=== PATIENT | male | born 1935 | race Hispanic/Latino ===

== ENCOUNTER 2018-01-10 10:09 | Emergency (ER) | payer MEDICARE, OTHER ==
[2018-01-10 10:18] VITALS: BMI 23.6
[2018-01-10 10:25] VITALS: TEMP 97.9
--- NOTE | 2018-01-10 11:01 | ED PDOC ---
Arrival/HPI - General Chief Complaint: Abnormal Labs Time Seen by Provider: 01/10/18 10:46 Historian: Patient - History of Present Illness Narrative History of Present Illness (Text): 01/10/18 10:56 Pt is an 82 yr old male with a past medical history of hypertension, and type 2 diabetes, who presents today after having routine labs done at [facility] yesterday and stated that the potassium was elevated and should be evaluated in the ED. Pt is completely asymptomatic and denies chest pain, shortness of breath , back pain or any other complaints. Time/Duration: 24 hours Symptom Onset: Sudden Symptom Course: Unchanged Quality: Unable to Describe Context: Other (Found at [facility] yesterday) Past Medical History - Provider Review Nursing Documentation Reviewed: Yes - Travel History Have you recently traveled outside [place] w/in the past 3 mons?: No - Infectious Disease Hx of Infectious Diseases: None - Cardiac Hx Hypertension: Yes - Endocrine/Metabolic Hx Diabetes Mellitus Type 2: Yes - Psychiatric Hx Substance Use: No - Surgical History Hx Appendectomy: Yes - Anesthesia Hx Anesthesia Reactions: No Hx Malignant Hyperthermia: No Family/Social History - Physician Review Nursing Documentation Reviewed: Yes Family/Social History: Unknown Family HX Smoking Status: Former Smoker Hx Alcohol Use: No Hx Substance Use: No Allergies/Home Meds Allergies/Adverse Reactions: Allergies No Known Allergies Allergy (Verified 01/10/18 10:18) Home Medications: Home Meds Medication Instructions Recorded Confirmed No Known Home Med 01/10/18 01/10/18 Review of Systems - Review of Systems Constitutional: Normal Eyes: Normal ENT: Normal Respiratory: Normal Cardiovascular: Normal Gastrointestinal: Normal Genitourinary Male: Normal Musculoskeletal: Normal Skin: Normal Neurological: Normal Endocrine: Normal Hemo/Lymphatic: Normal Psychiatric: Normal Physical Exam Vital Signs Reviewed: Yes Vital Signs Temp Pulse Resp BP Pulse Ox 01/10/18 12:21 75 18 112/68 97 01/10/18 10:24 97.9 F 78 19 110/53 L 95 Temperature: Afebrile Blood Pressure: Normal Pulse: Regular Respiratory Rate: Normal Appearance: Positive for: Well-Appearing, Non-Toxic, Comfortable Pain Distress: None Mental Status: Positive for: Alert and Oriented X 3 - Systems Exam Head: Present: Atraumatic, Normocephalic Pupils: Present: PERRL Extroacular Muscles: Present: EOMI Conjunctiva: Present: Normal Mouth: Present: Moist Mucous Membranes Neck: Present: Normal Range of Motion Respiratory/Chest: Present: Clear to Auscultation, Good Air Exchange. No: Respiratory Distress, Accessory Muscle Use Cardiovascular: Present: Regular Rate and Rhythm, Normal S1, S2. No: Murmurs Abdomen: No: Tenderness, Distention, Peritoneal Signs Back: Present: Normal Inspection Upper Extremity: Present: Normal Inspection. No: Cyanosis, Edema Lower Extremity: Present: Normal Inspection. No: Edema Neurological: Present: GCS=15, CN II-XII Intact, Speech Normal Skin: Present: Warm, Dry, Normal Color. No: Rashes Psychiatric: Present: Alert, Oriented x 3, Normal Insight, Normal Concentration Medical Decision Making ED Course and Treatment: 01/10/18 11:00 Impression Pt is an 82 yr old male who is asymptomatic with an elevated potassium finding at [facility] yesterday Pt complains of right inguinal pressure, especially on coughing or sneezing; otherwise PE benign Plan Labs, EKG Assess and dispo Progress note Potassium 4.9 and ECG with NSR, elevated whites Pt remains asymptomatic Case discussed with Dr Dimas who evaluated pt bedside; exam unremarkable and no underlying pathology appreciated Advised Pt to follow up with PMD to discuss lab results and monitor over time VSS on d/c - Lab Interpretations Lab Results: 01/10/18 11:36 01/10/18 11:10 Lab Results 01/10/18 11:36: WBC 17.5 H, RBC 4.39, Hgb 13.6 L, Hct 40.5 L, MCV 92.3, MCH 31.0 , MCHC 33.6, RDW 13.5, Plt Count 308, MPV 10.6, Gran % 42.4 L, Lymph % (Auto) 47.9 H, [place] % (Auto) 6.2 H, Eos % (Auto) 3.2, Baso % (Auto) 0.3, Gran # 7.40 H , Lymph # (Auto) 8.4 H, [place] # (Auto) 1.1 H, Eos # (Auto) 0.6, Baso # (Auto) 0.05 01/10/18 11:10: Sodium 144, Potassium 4.9, Chloride 104, Carbon Dioxide 28, Anion Gap 16, BUN 23 H, Creatinine 1.2, Est GFR ( Amer) > 60, Est GFR ( Non-Af Amer) 58, Random Glucose 95, Calcium 9.7, Total Bilirubin 0.5, AST 28, ALT 30, Alkaline Phosphatase 73, Total Protein 7.6, Albumin 4.5, Globulin 3.1, Albumin/Globulin Ratio 1.5 01/10/18 11:05: Urine Color Yellow, Urine Appearance Clear, Urine pH 6.0, Ur Specific [place] 1.025, Urine Protein Trace H, Urine Glucose (UA) Negative, Urine Ketones Negative, Urine Blood Negative, Urine Nitrate Negative, Urine Bilirubin Negative, Urine Urobilinogen 1.0 H, Ur Leukocyte Esterase Negative, Urine RBC 0 - 2, Urine WBC 0 - 2, Ur Epithelial Cells None, Urine Bacteria Few - EKG Interpretation Interpreted by ED Physician: Yes (NSR with mildly peaked T waves in V2-V6, Rate 72) Disposition/Present on Arrival - Present on Arrival Any Indicators Present on Arrival: No History of DVT/PE: No History of Uncontrolled Diabetes: No Urinary Catheter: No History of Decub. Ulcer: No History Surgical Site Infection Following: None - Disposition Have Diagnosis and Disposition been Completed?: Yes Diagnosis: Blood pressure check, Leukocytosis Disposition: HOME/ ROUTINE Disposition Time: 12:13 Patient Plan: Discharge Condition: GOOD Discharge Instructions (ExitCare): Low Potassium Diet Additional Instructions: Crow thank you for letting us take care of you today. Your provider was CARLOS Hu. You were evaluated for possible electrolyte abnormality and blood pressure. The emergency medical care you received today was directed at your acute symptoms. If you were prescribed any medication, please fill it and take as directed. It may take several days for your symptoms to resolve. Return to the Emergency Department if your symptoms worsen, do not improve, or if you have any other problems. Please let your doctor know that your potassium level (4.9) today was within a normal range but should be monitored over time Please contact your doctor or call one of the physicians/clinics you have been referred to that are listed on the Patient Visit Information form that is included in your discharge packet. Bring any paperwork you were given at discharge with you along with any medications you are taking to your follow up visit. Our treatment cannot replace ongoing medical care by a primary care provider (PCP) outside of the emergency department. Thank you for allowing the [facility] team to be part of your care today. Referrals: Nathan Hobbs [Primary Care Provider] - Follow up with primary Forms: [employer] ([place])
[2018-01-10 11:29] LABS: URINE BILIRUBIN NEGATIVE (NEGATIVE); URINE BLOOD NEGATIVE (NEGATIVE); URINE GLUCOSE (UA) NEGATIVE (NEGATIVE); URINE LEUKOCYTE ESTERASE NEGATIVE Leu/uL (NEGATIVE); URINE PROTEIN TRACE mg/dL (<30 mg/dL)
[2018-01-10 11:30] LABS: URINE APPEARANCE CLEAR (CLEAR); URINE COLOR YELLOW (YELLOW)
[2018-01-10 11:43] LABS: URINE BACTERIA FEW (NEG); URINE RBC 0 - 2 /hpf (0-2); URINE WBC 0 - 2 /hpf (0-6)
[2018-01-10 11:53] LABS: ALB/GLOB RATIO 1.5 (1.1-1.8); ALBUMIN 4.5 g/dL (3.0-4.8); ALT/SGPT 30 U/L (7-56); AST/SGOT 28 U/L (17-59); BLOOD UREA NITROGEN 23 mg/dL (7-21); CALCIUM 9.7 mg/dL (8.4-10.5); GFR AFRICAN-AMERICAN > 60; GFR NON-AFRICAN AMERICAN 58
[2018-01-10 12:12] LABS: BASO # 0.05 K/mm3 (0.0-2.0); BASO % 0.3 % (0.0-3.0); EOS # 0.6 (0.0-0.7); EOS % 3.2 % (1.5-5.0); GRAN # 7.4 (1.4-6.5); GRAN % 42.4 % (50.0-68.0); HEMOGLOBIN 13.6 g/dL (14.0-18.0); LYMPH # 8.4 (1.2-3.4); LYMPH % 47.9 % (22.0-35.0); MEAN CELL VOLUME 92.3 fl (80.0-105.0); MEAN CORPUSCULAR HGB CONC 33.6 g/dl (31.0-37.0); MEAN PLATELET VOLUME 10.6 fl (7.0-11.0); MONO # 1.1 (0.1-0.6); MONO % 6.2 % (1.0-6.0); RBC 4.39 10^6/uL (3.5-6.1); RED CELL DISTRIBUTION WIDTH 13.5 % (11.5-14.5); WHITE BLOOD COUNT 17.5 10^3/ul (4.5-11.0)
[2018-01-10 12:31] VITALS: BP 112/68; PULSE 75; RESP 18; O2SAT 97
--- NOTE | 2018-01-10 19:11 | CARD ---
APPROVED REPORT EKG Measurement Heart [id number] <Conclusion> Normal sinus rhythm Normal ECG
== END 2018-01-10 12:30 | disposition home or self-care (01) ==
LOC: ED 10:09
DX: D72.829 Elevated white blood cell count, unspecified (principal); I10 Essential (primary) hypertension; E11.9 Type 2 diabetes mellitus without complications; Z87.891 Personal history of nicotine dependence

== ENCOUNTER 2018-06-01 14:28 | Observation (INO) | payer MEDICARE, OTHER ==
[2018-06-01 14:29] VITALS: BMI 23.6
--- NOTE | 2018-06-01 15:00 | ED PDOC ---
Arrival/HPI - General Chief Complaint: Abdominal Pain Time Seen by Provider: 06/01/18 14:44 Historian: Patient - History of Present Illness Narrative History of Present Illness (Text): 06/01/18 14:59 A 82 year old male, whose past medical history includes hypertension and type 2 diabetes, presents to the emergency department complaining of a hernia since a few days ago. Patient reports he has had the hernia for 3 months but pain has become worse in the past few days. Patient notes pain is non-radiating and stays in the groin area. Patient denies any fever, chills, shortness of breath , chest pain, diarrhea, nausea, vomiting, urinary symptoms, back pain, neck pain, headache, dizziness, or any other complaints. PMD: Al Blount General Surgeon: Dr. Booker Time/Duration: Other (a few days ago) Symptom Onset: Gradual Activities at Onset: Light Context: Home Past Medical History - Provider Review Nursing Documentation Reviewed: Yes - Infectious Disease Hx of Infectious Diseases: None - Cardiac Hx Hypertension: Yes - Endocrine/Metabolic Hx Diabetes Mellitus Type 2: Yes - Psychiatric Hx Substance Use: No - Surgical History Hx Appendectomy: Yes - Anesthesia Hx Anesthesia Reactions: No Hx Malignant Hyperthermia: No Family/Social History - Physician Review Nursing Documentation Reviewed: Yes Family/Social History: Unknown Family HX Smoking Status: Former Smoker Hx Alcohol Use: No Hx Substance Use: No Allergies/Home Meds Allergies/Adverse Reactions: Allergies No Known Allergies Allergy (Verified 06/01/18 14:51) Home Medications: Home Meds Medication Instructions Recorded Confirmed No Known Home Med 01/10/18 01/10/18 Review of Systems - Physician Review All systems were reviewed & negative as marked: Yes - Review of Systems Constitutional: absent: Fevers, Night Sweats Respiratory: absent: SOB Cardiovascular: absent: Chest Pain Gastrointestinal: absent: Diarrhea, Nausea, Vomiting Genitourinary Male: Other (+hernia pain in the groin area). absent: Urinary Output Changes Musculoskeletal: absent: Back Pain, Neck Pain Neurological: absent: Headache, Dizziness Physical Exam Vital Signs Reviewed: Yes Vital Signs Temp Pulse Resp BP Pulse Ox 06/01/18 15:55 98.0 F 79 18 132/48 L 97 06/01/18 14:53 98.0 F 65 18 154/70 H 99 Temperature: Afebrile Blood Pressure: Hypertensive Pulse: Regular Respiratory Rate: Normal Appearance: Positive for: Well-Appearing, Non-Toxic, Comfortable Pain Distress: None Mental Status: Positive for: Alert and Oriented X 3 - Systems Exam Head: Present: Atraumatic, Normocephalic Pupils: Present: PERRL Extroacular Muscles: Present: EOMI Conjunctiva: Present: Normal Mouth: Present: Moist Mucous Membranes Neck: Present: Normal Range of Motion Respiratory/Chest: Present: Clear to Auscultation, Good Air Exchange. No: Respiratory Distress, Accessory Muscle Use Cardiovascular: Present: Regular Rate and Rhythm, Normal S1, S2. No: Murmurs Abdomen: No: Tenderness, Distention, Peritoneal Signs Genitourinary Male: Present: Hernias (+ingrown hernia, reducable. tender to palpation on groin). No: Normal External Genitalia, Circumcised Penis, Lesions , Penile Discharge, Testicle Tenderness, Penile Swelling, Masses, Erythema, Prostate Tenderness, Prostate Enlargement Back: Present: Normal Inspection Upper Extremity: Present: Normal Inspection. No: Cyanosis, Edema Lower Extremity: Present: Normal Inspection. No: Edema Neurological: Present: GCS=15, CN II-XII Intact, Speech Normal Skin: Present: Warm, Dry, Normal Color. No: Rashes Psychiatric: Present: Alert, Oriented x 3, Normal Insight, Normal Concentration Medical Decision Making ED Course and Treatment: 06/01/18 15:06 Impression: 82 year old male presents to the emergency department with a hernia. Plan: -- Type and screen -- VBG -- CMP -- Magnesium -- Physician Consult (Dr. Booker) -- CBC -- COAGs -- Toradol -- Reassess and disposition Prior Visits: Notes and results from previous visits were reviewed. Progress Notes: 06/01/18 15:28 I was able to reduce the hernia in the ED but the patient continued to feel pain with a bulging sedation in the groin. residential driver, Nicholas, came to evaluate patient and will admit patient for intractable pain to right ingrown hernia to Dr. Booker's service. - Medication Orders Current Medication Orders: Sodium Chloride (Sodium Chloride 0.9%) 1,000 mls @ 100 mls/hr IV .Q10H JARETT Last Admin: 06/01/18 16:04 Dose: 100 mls/hr eMAR Start Stop Document 06/01/18 16:04 OCS (Rec: 06/01/18 16:04 [facility] [id number]) Intravenous Solution Start Date 06/01/18 Start Time 16:04 Insulin Human Regular (Humulin R Med) 0 units SC ACHS [facility] PRN Reason: Protocol Discontinued Medications Ketorolac Tromethamine (Toradol) 15 mg IVP STAT STA Stop: 06/01/18 15:00 Last Admin: 06/01/18 16:03 Dose: 15 mg MAR Pain Assessment Document 06/01/18 16:03 OCS (Rec: 06/01/18 16:04 [id number] Pain Reassessment Is this a pain reassessment? No Sleep Is patient sleeping during reassessment? No Presence of Pain Presence of Pain Yes Pain Scale Used Pain Scale Used Numeric Location Left, Right or Bilateral Right Upper or Lower Lower Pain Location Body Site Abdomen Description Description Constant Intensity of Pain at present 9 Pain Behavior Withdrawal from Touch Facial Grimacing Aggravating Factors ADL's IVP Administration Document 06/01/18 16:03 OCS (Rec: 06/01/18 16:04 [id number] Charges for Administration # of IVP Administrations 1 - Scribe Statement The provider has reviewed the documentation as recorded by the Erasmo Bailon All medical record entries made by the Scarlettibe were at my direction and personally dictated by me. I have reviewed the chart and agree that the record accurately reflects my personal performance of the history, physical exam, medical decision making, and the department course for this patient. I have also personally directed, reviewed, and agree with the discharge instructions and disposition. Disposition/Present on Arrival - Present on Arrival Any Indicators Present on Arrival: No History of DVT/PE: No History of Uncontrolled Diabetes: No Urinary Catheter: No History of Decub. Ulcer: No History Surgical Site Infection Following: None - Disposition Have Diagnosis and Disposition been Completed?: Yes Diagnosis: Right inguinal hernia Disposition Time: 15:24 Patient Plan: Observation Condition: FAIR
--- NOTE | 2018-06-01 15:42 | RAD ---
Date of service: 06/01/2018 HISTORY: preop COMPARISON: No prior. FINDINGS: LUNGS: No active pulmonary disease. PLEURA: No significant pleural effusion identified, no pneumothorax apparent. CARDIOVASCULAR: Normal. OSSEOUS STRUCTURES: No significant abnormalities. VISUALIZED UPPER ABDOMEN: Normal. OTHER FINDINGS: None. IMPRESSION: No active disease.
[2018-06-01 15:44] LABS: VENOUS BLOOD GAS BASE EXCESS 1.7 mmol/L (0.0-2.0); VENOUS BLOOD GAS PO2 34 mm/Hg (30-55); VENOUS BLOOD PH 7.39 (7.32-7.43)
[2018-06-01 15:51] LABS: BASO # 0.03 K/mm3 (0.0-2.0); BASO % 0.2 % (0.0-3.0); EOS # 0.5 (0.0-0.7); EOS % 3.6 % (1.5-5.0); GRAN # 7.59 (1.4-6.5); GRAN % 50.8 % (50.0-68.0); LYMPH # 5.8 (1.2-3.4); LYMPH % 38.9 % (22.0-35.0); MEAN CELL VOLUME 91.9 fl (80.0-105.0); MEAN CORPUSCULAR HGB CONC 33.7 g/dl (31.0-37.0); MONO % 6.5 % (1.0-6.0); RBC 4.2 10^6/uL (3.5-6.1); WHITE BLOOD COUNT 14.9 10^3/ul (4.5-11.0)
[2018-06-01 15:55] LABS: ALB/GLOB RATIO 1.3 (1.1-1.8); ALBUMIN 4.2 g/dL (3.0-4.8); ALT/SGPT 16 U/L (7-56); AST/SGOT 29 U/L (17-59); BLOOD UREA NITROGEN 26 mg/dL (7-21); CALCIUM 9.6 mg/dL (8.4-10.5); GFR NON-AFRICAN AMERICAN > 60; INR 1.15; PARTIAL THROMBOPLASTIN TIME 30.3 Seconds (25.1-36.5); PROTHROMBIN TIME 13.2 SECONDS (9.4-12.5)
--- NOTE | 2018-06-01 15:56 | CP.PCM.HP ---
History of Present Illness - History of Present Illness History of Present Illness: General Surgery H&P This is an 82M with a PMH of DM and HTN and 3 month history of a Right groin hernia. He reports that for the last two weeks it was non reduicible. However the past couple of days the pain has been significantly worse. He reports regular bowel movement, passing gas and no vomitus. He went to see Dr. Booker in the office today for an exquisitly tender R inguinal hernia and was sent to the ED. In the ED the ED physician was able to successfully reduce the hernia. PMH: DM, HTN PSH: APPY ALL: NKDA Social: Distant history of ETOH and Tobacco Present on Admission - Present on Admission Any Indicators Present on Admission: No Review of Systems - Review of Systems All systems: reviewed and no additional remarkable complaints except Review of Systems: Tender inguinal hernia - Genitourinary Genitourinary: absent: Difficulty Urinating, Dysuria, Nocturia, Urinary Incontinence Past Patient History - Infectious Disease Hx of Infectious Diseases: None - Past Social History Smoking Status: Former Smoker - CARDIAC Hx Hypertension: Yes - ENDOCRINE/METABOLIC Hx Diabetes Mellitus Type 2: Yes - PSYCHIATRIC Hx Substance Use: No - SURGICAL HISTORY Hx Appendectomy: Yes - ANESTHESIA Hx Anesthesia Reactions: No Hx Malignant Hyperthermia: No Meds Allergies/Adverse Reactions: Allergies Allergy/AdvReac Type Severity Reaction Status Date / Time No Known Allergies Allergy Verified 06/01/18 14:51 Physical Exam - Constitutional Appears: Non-toxic, No Acute Distress - Head Exam Head Exam: ATRAUMATIC, NORMOCEPHALIC - Eye Exam Eye Exam: EOMI, Normal appearance - ENT Exam ENT Exam: Mucous Membranes Moist - Respiratory Exam Respiratory Exam: NORMAL BREATHING PATTERN - Cardiovascular Exam Cardiovascular Exam: +S1, +S2 - GI/Abdominal Exam GI & Abdominal Exam: Soft. absent: Distended, Firm, Guarding, Hernia, Rigid, Tenderness - Neurological Exam Neurological exam: Alert, Oriented x3 - Psychiatric Exam Psychiatric exam: Normal Affect, Normal Mood - Skin Skin Exam: Dry, Intact Results - Vital Signs Recent Vital Signs: Last Vital Signs Temp 98.0 F 06/01/18 14:53 Pulse 65 06/01/18 14:53 Resp 18 06/01/18 14:53 BP 154/70 H 06/01/18 14:53 Pulse Ox 99 06/01/18 14:53 - Labs Result Diagrams: 06/01/18 15:30 Labs: Laboratory Results - last 24 hr 06/01/18 06/01/18 15:30 15:30 WBC 14.9 H RBC 4.20 Hgb 13.0 L Hct 38.6 L MCV 91.9 MCH 31.0 MCHC 33.7 RDW 13.0 Plt Count 314 MPV 10.0 Gran % 50.8 Lymph % (Auto) 38.9 H [place] % (Auto) 6.5 H Eos % (Auto) 3.6 Baso % (Auto) 0.2 Gran # 7.59 H Lymph # (Auto) 5.8 H [place] # (Auto) 1.0 H Eos # (Auto) 0.5 Baso # (Auto) 0.03 pO2 34 VBG pH 7.39 VBG pCO2 45.0 VBG HCO3 27.2 VBG Total CO2 28.6 H VBG O2 Sat (Calc) 62.5 VBG Base Excess 1.7 VBG Potassium 4.6 Sodium 137.0 Chloride 103.0 Glucose 84 Lactate 2.9 H FiO2 21.0 Venous Blood Potassium 4.6 Assessment & Plan - Assessment and Plan (Free Text) Assessment: 82M with a symptomatic non obstructing incarcerated inguinal hernia Eventually reduced with protracted history of incarceration and pain F/U Medical Clearance OR in AM for hernia repair NPO after midnight IVF D/W Dr. Jhony Brunson PGY3
[2018-06-01] MEDS ORDERED: Sodium Chloride 0.9% 1,000 ML IV SCH (16:00)
[2018-06-01] MEDS: Insulin Reg-MEDIUM-Coverage SC SCH ×2 (17:57→21:12)
[2018-06-01 20:30] LABS: VENOUS BLOOD GAS BASE EXCESS 1.5 mmol/L (0.0-2.0); VENOUS BLOOD GAS PO2 43 mm/Hg (30-55); VENOUS BLOOD PH 7.43 (7.32-7.43)
--- NOTE | 2018-06-01 20:57 | CARD ---
APPROVED REPORT Date of service: 06/01/2018 EKG Measurement Heart [id number] <Conclusion> Normal sinus rhythm Normal ECG
[2018-06-01] MEDS ORDERED: Pneumococcal 23-Valent Vaccine IM ONE (23:17)
[2018-06-02 07:58] LABS: BASO # 0.03 K/mm3 (0.0-2.0); BASO % 0.2 % (0.0-3.0); EOS # 0.6 (0.0-0.7); EOS % 4.9 % (1.5-5.0); GRAN # 5.76 (1.4-6.5); GRAN % 47.5 % (50.0-68.0); HEMOGLOBIN 12.1 g/dL (14.0-18.0); LYMPH # 5.2 (1.2-3.4); LYMPH % 42.7 % (22.0-35.0); MEAN CELL VOLUME 92.2 fl (80.0-105.0); MEAN CORPUSCULAR HEMOGLOBIN 30.6 pg (25.0-35.0); MEAN CORPUSCULAR HGB CONC 33.2 g/dl (31.0-37.0); MEAN PLATELET VOLUME 9.8 fl (7.0-11.0); MONO # 0.6 (0.1-0.6); MONO % 4.7 % (1.0-6.0); RBC 3.96 10^6/uL (3.5-6.1); RED CELL DISTRIBUTION WIDTH 12.9 % (11.5-14.5); WHITE BLOOD COUNT 12.1 10^3/ul (4.5-11.0)
[2018-06-02 08:31] LABS: ALB/GLOB RATIO 1.2 (1.1-1.8); ALBUMIN 3.5 g/dL (3.0-4.8); ALT/SGPT 22 U/L (7-56); AST/SGOT 22 U/L (17-59); BLOOD UREA NITROGEN 26 mg/dL (7-21); CALCIUM 8.7 mg/dL (8.4-10.5); GFR NON-AFRICAN AMERICAN > 60
--- NOTE | 2018-06-02 08:45 | CON ---
DATE: 06/02/2018 HISTORY OF PRESENT ILLNESS: The patient is an 82-year-old white male who is currently in room 578 bed 2. He has no complaints of any pain. Apparently, the patient went and saw Dr. Pardeep Booker in his office where it was found that he had an incarcerated inguinal hernia. The patient was subsequently sent to the Emergency Room where the hernia was reduced. He is now scheduled for surgery this morning and I am here to clear him for surgery. PAST MEDICAL HISTORY: Remarkable for diabetes and hypertension. SOCIAL HISTORY: Remote history of alcohol and tobacco use. FAMILY HISTORY: Noncontributory. REVIEW OF SYSTEMS: The 12-point review of systems is unremarkable. PHYSICAL EXAMINATION: VITAL SIGNS: Temperature of 97.8, pulse rate of 76, blood pressure 110/64, respiratory rate of 20, O2 saturation is 96% on room air. HEENT: PERRLA. EOMI. There is no icterus present. NECK: Supple with full range of motion. There is no bruits or jugular venous distention. LUNGS: Clear to auscultation and percussion bilaterally. ABDOMEN: Soft. It is nontender. There is no organomegaly. Bowel sounds were normoactive. There is a right inguinal hernia present, not incarcerated at the moment. EXTREMITIES: Show no deformities or edema. NEUROLOGIC: The patient is intact. DATA: Lab values are CBC shows a WBC of 12.1 which is down from yesterday's 14.9. Hemoglobin and hematocrit are also 12.1 and 36.5; 42.7% lymphocytes. PT and INR within normal limits. Chemistry is also within normal limits with the exception of BUN of 26. CURRENT DIAGNOSES: 1. Right inguinal hernia. 2. Hypertension. 3. Diabetes. The patient is medically cleared for surgery. Garrett Cao MD
[2018-06-02] MEDS: Insulin Reg-MEDIUM-Coverage SC SCH ×4 (08:58→21:24)
[2018-06-02] MEDS: Dextrose 5%/0.45% NS 1,000 ML IV SCH ×2 (09:17→21:24)
[2018-06-02] MEDS ORDERED: Bupivacaine 0.5% Inj(30mL) ONE (12:46)
[2018-06-02] MEDS ORDERED: Propofol 10 mg/ml Inj (20 ML) ONE (13:02)
[2018-06-02] MEDS: Bupivacaine Liposomal Inj 20 ml ONE ×2 (13:56→14:18)
[2018-06-02] MEDS ORDERED: Lactated Ringer's 1,000 ML IV SCH (14:30)
[2018-06-02] MEDS ORDERED: HYDROmorphone 0.5 mg/0.5 ml ISec IVP PRN (14:30)
--- NOTE | 2018-06-02 14:33 | PCM.SURG1 ---
Surgeon's Initial Post Op Note - Surgeon's Notes Surgeon: Dr. Booker Personnel Psychologist: Dr. Brunson PGY3, Dr. Gaviria PGY1 Type of Anesthesia: General Endo Anesthesia Administered By: Dr. Underwood Pre-Operative Diagnosis: Right inguinal hernia Operative Findings: See operative dictation Post-Operative Diagnosis: Right inguinal hernia Operation Performed: Right inguinal hernia repair with mesh Specimen/Specimens Removed: Hernia lipoma Estimated Blood Loss: EBL {In ML}: 5 Blood Products Given: N/A Drains Used: No Drains Post-Op Condition: Good Date of Surgery/Procedure: 06/02/18 Time of Surgery/Procedure: 14:32
[2018-06-02] MEDS: Oxycodone/Acetaminophen 5/325 mg Tab PO PRN (16:40)
[2018-06-02 22:58] VITALS: O2SAT 100
[2018-06-03] MEDS: Oxycodone/Acetaminophen 5/325 mg Tab PO PRN (06:31)
[2018-06-03] MEDS: Insulin Reg-MEDIUM-Coverage SC SCH ×2 (08:00→11:38)
[2018-06-03 08:33] VITALS: BP 119/55; PULSE 64; RESP 20; TEMP 98
--- NOTE | 2018-06-03 09:12 | CP.PCM.DIS ---
Provider - Provider Date of Admission: 06/01/18 15:24 Attending physician: Pardeep Booker MD Primary care physician: Al Cao MD Consults: Medicine Dr. Cao Time Spent in preparation of Discharge (in minutes): 45 Diagnosis - Discharge Diagnosis (1) Right inguinal hernia Status: Resolved Hospital Course - Lab Results Lab Results: Most Recent Lab Values WBC 12.1 10^3/ul (4.5-11.0) H 06/02/18 07:30 RBC 3.96 10^6/uL (3.5-6.1) 06/02/18 07:30 Hgb 12.1 g/dL (14.0-18.0) L 06/02/18 07:30 Hct 36.5 % (42.0-52.0) L 06/02/18 07:30 MCV 92.2 fl (80.0-105.0) 06/02/18 07:30 MCH 30.6 pg (25.0-35.0) 06/02/18 07:30 MCHC 33.2 g/dl (31.0-37.0) 06/02/18 07:30 RDW 12.9 % (11.5-14.5) 06/02/18 07:30 Plt Count 268 10^3/uL (120.0-450.0) 06/02/18 07:30 MPV 9.8 fl (7.0-11.0) 06/02/18 07:30 Gran % 47.5 % (50.0-68.0) L 06/02/18 07:30 Lymph % (Auto) 42.7 % (22.0-35.0) H 06/02/18 07:30 [place] % (Auto) 4.7 % (1.0-6.0) 06/02/18 07:30 Eos % (Auto) 4.9 % (1.5-5.0) 06/02/18 07:30 Baso % (Auto) 0.2 % (0.0-3.0) 06/02/18 07:30 Gran # 5.76 (1.4-6.5) 06/02/18 07:30 Lymph # (Auto) 5.2 (1.2-3.4) H 06/02/18 07:30 Sawyer # (Auto) 0.6 (0.1-0.6) 06/02/18 07:30 Eos # (Auto) 0.6 (0.0-0.7) 06/02/18 07:30 Baso # (Auto) 0.03 K/mm3 (0.0-2.0) 06/02/18 07:30 PT 13.2 SECONDS (9.4-12.5) H 06/01/18 15:30 INR 1.15 06/01/18 15:30 APTT 30.3 Seconds (25.1-36.5) 06/01/18 15:30 pO2 43 mm/Hg (30-55) 06/01/18 20:10 VBG pH 7.43 (7.32-7.43) 06/01/18 20:10 VBG pCO2 39.0 (40-60) L 06/01/18 20:10 VBG HCO3 25.9 mmol/l (21-28) 06/01/18 20:10 VBG Total CO2 27.1 mmol.L (22-28) 06/01/18 20:10 VBG O2 Sat (Calc) 79.4 % (40-65) H 06/01/18 20:10 VBG Base Excess 1.5 mmol/L (0.0-2.0) 06/01/18 20:10 VBG Potassium 3.8 mmol/L (3.6-5.2) 06/01/18 20:10 Sodium 138.0 mmol/L (132-148) 06/01/18 20:10 Chloride 107.0 mmol/L (98-107) 06/01/18 20:10 Glucose 120 mg/dl (75-110) H 06/01/18 20:10 Lactate 1.4 mmol/L (0.7-2.1) 06/01/18 20:10 FiO2 21.0 % 06/01/18 20:10 Sodium 141 mmol/L (132-148) 06/02/18 07:30 Potassium 4.6 mmol/L (3.6-5.0) 06/02/18 07:30 Chloride 108 mmol/L (98-107) H 06/02/18 07:30 Carbon Dioxide 26 mmol/L (21-33) 06/02/18 07:30 Anion Gap 12 (10-20) 06/02/18 07:30 BUN 26 mg/dL (7-21) H 06/02/18 07:30 Creatinine 0.9 mg/dl (0.8-1.5) 06/02/18 07:30 Est GFR ( Amer) > 60 06/02/18 07:30 Est GFR (Non-Af Amer) > 60 06/02/18 07:30 POC Glucose (mg/dL) 89 mg/dL (65-110) 06/02/18 21:19 Random Glucose 87 mg/dL (70-110) 06/02/18 07:30 Calcium 8.7 mg/dL (8.4-10.5) 06/02/18 07:30 Magnesium 1.4 mg/dL (1.7-2.2) L 06/01/18 15:30 Total Bilirubin 0.8 mg/dL (0.2-1.3) 06/02/18 07:30 AST 22 U/L (17-59) 06/02/18 07:30 ALT 22 U/L (7-56) 06/02/18 07:30 Alkaline Phosphatase 57 U/L (38-126) 06/02/18 07:30 Total Protein 6.3 g/dL (5.8-8.3) 06/02/18 07:30 Albumin 3.5 g/dL (3.0-4.8) 06/02/18 07:30 Globulin 2.8 gm/dL 06/02/18 07:30 Albumin/Globulin Ratio 1.2 (1.1-1.8) 06/02/18 07:30 Venous Blood Potassium 3.8 mmol/L (3.6-5.2) 06/01/18 20:10 Blood Type O POSITIVE 06/01/18 16:00 Blood Type Confirm O POSITIVE 06/01/18 16:56 Antibody Screen Negative 06/01/18 16:00 BBK History Checked No verified bt 06/01/18 16:00 - Hospital Course Hospital Course: Pt was admitted on 06/01/18 due to severly painful incarcerated inguinal hernia. It was manually reduced on 06/01. Pt was taken to the OR for an open inguinal herniorraphy on 06/02. He tlerated the procedure well. He has since tolerated diet and urinated without issue. Patient is stable for discharge hoem with followup in 7-10 days. Discharge Exam - Head Exam Head Exam: ATRAUMATIC, NORMOCEPHALIC - Eye Exam Eye Exam: EOMI - Respiratory Exam Respiratory Exam: NORMAL BREATHING PATTERN - GI/Abdominal Exam GI & Abdominal Exam: absent: Distended, Firm, Guarding, Hernia, Soft, Tenderness - Neurological Exam Neurological exam: Alert, Oriented x3 - Skin Skin Exam: Dry, Intact - Additional Findings Additional findings: Wound well aproximated with glu in place non erthematous non draining appropriately tender. Discharge Plan - Discharge Medications Prescriptions: oxyCODONE/Acetaminophen [Percocet 5/325 mg Tab] 1 tab PO Q4H PRN #20 tab PRN Reason: Pain, Moderate (4-7) - Follow Up Plan Condition: FAIR Disposition: HOME/ ROUTINE Instructions: Preventing Falls in the Older Adult, How to Prevent Surgical Site Infections, Surgical Wound (DC), Groin Hernia Repair, Open Surgery, Open Herniorrhaphy (DC), Laparoscopic Herniorrhaphy (DC), Inguinal Hernia (DC) Additional Instructions: follow up w/ PMD in 1 week follow up w/ Dr. Booker in 7-10 days take all medication as prescribed may take OTC pain medication PRN no heavy lifting for 6weeks (nothing heavier than 10lbs) pt may shower do not soak incisions no pools, tubs, baths call Dr. Booker/return to ED if fever >101, pain, redness, swelling, drainage from incisions Referrals: Nash SCOTT,Al Christian MD [Primary Care Provider] - Pardeep Booker MD [Staff Provider] -
--- NOTE | 2018-06-03 23:18 | PN ---
DATE: 06/03/2018 SUBJECTIVE: The patient was seen this morning. He was sitting up in chair and was dressed and ready to be discharged. His only complaint is some pain at the surgical site. PHYSICAL EXAMINATION: VITAL SIGNS: Temperature of 98, pulse rate of 64, blood pressure of 119/55, respiratory rate of 20 with an O2 saturation of 100% on room air. HEENT: Unremarkable. NECK: Supple with full range of motion. LUNGS: Clear bilaterally. HEART: With a regular rate and rhythm. ABDOMEN: Soft. It is tender in the right lower quadrant. There is surgical dressing. Bowel sounds are normoactive. NEUROLOGICALLY: There are no focal deficits. LABORATORY DATA: Blood work today was not done. His sugar this morning which was a random, was 118. CURRENT DIAGNOSES: 1. Inguinal hernia status post surgery. 2. Diabetes mellitus. 3. . PLAN: The patient will be discharged room by Dr. Booker today and will follow up in the office in one week's duration. Garrett Cao MD
--- NOTE | 2018-06-13 18:41 | OP ---
PROCEDURE DATE: 06/13/2018 PREOPERATIVE DIAGNOSIS: Right inguinal hernia. POSTOPERATIVE DIAGNOSIS: Right inguinal hernia. OPERATION PERFORMED: Right inguinal herniorrhaphy. DESCRIPTION OF PROCEDURE: In the operating room, the patient was identified by name, name of procedure, laterality, my gama. The right inguinal hernia was identified. An incision was made through the skin and subcutaneous tissues. After the time-out was obtained correctly and the chlorhexidine dried, the incision was taken down sharply and cauterized to the Michelle's, which was divided exposing the external oblique, which was cleaned and then opened in the direction of its fibers from the internal ring up superiorly. The undersurface was cleaned. The cord was circumscribed at the pubic tubercle with a [place]. The hernia sac was identified, pushed away, very nicely. A high dissection performed. This was reduced after repairing of a small hole in the sac itself. A plug was placed, sutured in 3 places and a patch was then placed around the cord using a Vicryl. It was trimmed down nicely, tamped down to neutral position without a bend and the external oblique closed over carefully avoiding the nerves. External oblique was closed with Vicryl. The subcutaneous tissue was closed with Vicryl. Skin was closed with a subcuticular followed by Dermabond. was put in its normal position. Pardeep Booker MD
== END 2018-06-03 12:58 | disposition home or self-care (01) ==
LOC: ED 14:28 → ERH 15:24 → 5RSO 18:16
PROVIDERS: ADMIT Surgery; ATTEND Surgery
DX: K40.30 Unilateral inguinal hernia, with obstruction, without gangrene, not specified as recurrent (principal); I10 Essential (primary) hypertension; E11.9 Type 2 diabetes mellitus without complications; Z87.891 Personal history of nicotine dependence; Z90.49 Acquired absence of other specified parts of digestive tract
CPT/HCPCS: 36415; 49505; 71045; 80053; 82803; 82948; 83735; 85025; 85610; 85730; 86850; 86900; 88302; 93005; 96374; 99284; G0378; J0690; J1885; J2001; J2704; J3010; J7030; J7042; J7120